=== PATIENT | female | born 1960 | race Caucasian/White ===

== ENCOUNTER 2025-03-05 09:59 | Outpatient (CLI) | payer OTHER | END 2025-03-05 10:00 | disposition home or self-care (01) | LOC: CSHMAMMO 09:59 | PROVIDERS: ATTEND Obstetrics & Gynecology | DX: R92.8 Other abnormal and inconclusive findings on diagnostic imaging of breast (principal); N63.11 Unspecified lump in the right breast, upper outer quadrant | CPT/HCPCS: G0279 ==

== ENCOUNTER → 2025-03-19 | Day surgery (SDC) | payer OTHER | LOC: CSHULT 12:58 | PROVIDERS: ATTEND Obstetrics & Gynecology | PROC: 0HBT3ZX Excision of Right Breast, Percutaneous Approach, Diagnostic (ICD-10-PCS; principal; 2025-03-19) | DX: C50.411 Malignant neoplasm of upper-outer quadrant of right female breast (principal); Z17.0 Estrogen receptor positive status [ER+]; Z17.22 Progesterone receptor negative status; Z17.32 Human epidermal growth factor receptor 2 negative status | CPT/HCPCS: 19083; 88305; 88342; 88361; A4648 ==

== ENCOUNTER 2025-04-15 13:14 | Outpatient (CLI) | payer OTHER | END 2025-04-15 13:15 | disposition home or self-care (01) | LOC: CSHULT 13:14 | PROVIDERS: ATTEND Obstetrics & Gynecology | DX: N93.0 Postcoital and contact bleeding (principal); N28.9 Disorder of kidney and ureter, unspecified | CPT/HCPCS: 76770 ==